=== PATIENT | male | born 1990 ===

== ENCOUNTER 2020-04-13 14:45 | Emergency (ER) | payer BC, OTHER ==
[2020-04-13] MEDS ORDERED: Sodium Chloride 0.9% 2.5 ML Syringe FLUSH PRN (14:55)
[2020-04-13] MEDS ORDERED: Sodium Chloride 0.9% 10 ML Syringe FLUSH PRN (14:55)
[2020-04-13] MEDS ORDERED: Dexamethasone 10 MG/ML SDV IVPUSH ONE (14:56)
[2020-04-13] MEDS ORDERED: Ketorolac 30 MG/ML SDV IVPUSH ONE (15:26)
--- NOTE | 2020-04-13 15:26 | EDM.PDOC ---
ED HPI GENERAL MEDICAL PROBLEM - General Chief Complaint: ENT Problem Stated Complaint: sore throat and chills Time Seen by Provider: 04/13/20 14:47 Source of Information: Reports: Patient History Limitations: Reports: No Limitations - History of Present Illness INITIAL COMMENTS - FREE TEXT/NARRATIVE: HISTORY AND PHYSICAL: History of present illness: Patient is a 29-year-old male who presents to the ED today with concern of sore throat and chills that started this morning when he woke up. Patient states that he does have more pain on the left side of his throat and is having pain with swallowing. Patient states he also has chills but does not feel as if he has a fever but has not checked for one. Patient has a h/o tonsillectomy but denies any other health history. Patient states he did have COVID back in July/August. Has not taken anything for his symptoms. Patient denies fever, chest pain, shortness of breath, or cough. Denies headache, neck stiff ness, change in vision, syncope, or near syncope. Denies nausea, vomiting, abdominal pain, diarrhea, constipation, or dysuria. Has not noted any blood in urine or stool. Patient has been eating and drinking appropri ately. Review of systems: As per history of present illness and below otherwise all systems reviewed and negative. Past medical history: As per history of present illness and as reviewed below otherwise noncontributory. Surgical history: As per history of present illness and as reviewed below otherwise noncontributory. Social history: See social history for further information Family history: As per history of present illness and as reviewed below otherwise noncontributory. Physical exam: General: Patient is alert, oriented, and in no acute distress. Patient sitting comfortably on exam table. Vitals stable and reviewed by me. Nursing documentation reviewed. HEENT: There is a slight fullness of the left sided tonsillar area with absent tonsils. Oropharynx is erythematous without exudate. Otherwise, atraumatic, normocephalic, pupils equal and reactive bilaterally, negative for conjunctival pallor or scleral icterus, mucous membranes moist, TMs normal bilaterally, throat clear, neck supple, nontender, trachea midline. No drooling or trismus noted. No meningeal signs. No hot potato voice noted. Lungs: Clear to auscultation, breath sounds equal bilaterally, chest nontender. Heart: S1S2, regular rate and rhythm without overt murmur Abdomen: Soft, nondistended, nontender. Negative for masses or hepatosplenomegaly. Negative for costovertebral tenderness. Pelvis: Stable nontender. Genitourinary: Deferred. Rectal: Deferred. Skin: Intact, warm, dry. No lesions or rashes noted. Extremities: Atraumatic, negative for cords or calf pain. Neurovascular unremarkable. Neuro: Awake, alert, oriented. Cranial nerves II through XII unremarkable. Cerebellum unremarkable. Motor and sensory unremarkable throughout. Exam nonfocal. Notes: Dr. Johnston verbally involved in patient care. Clinically patient appears well but does have pain with swallowing. He is able to handle secretions, no posturing, drooling, or trismus. He does have a slight fullness of the left tonsillar region so will obtain soft tissue neck CT to further assess. On reassessment, patient remains vitally stable and more comfortable following therapeutics, and appears well, non toxic. Signs and symptoms that would prompt return to the ED thoroughly discussed with patient. Patient placed on expedited follow up list to be seen by PCP. Strict return precautions discussed with patient. Voices understanding and is agreeable to plan of care. Denies any further questions or concerns at this time. Diagnostics: CBC, CMP, Strep, COVID19, soft tissue neck ct w cont Therapeutics: Saline lock, Decadron, Toradol, Clindamycin, Viscous lidocaine, Morphine Prescription: Augmentin Impression: Peritonsillar cellulitis, left Plan: 1. Take medication as prescribed. You can alternate ibuprofen and Tylenol as directed for pain and discomfort. 2. Follow up with a primary care provider in the next 1-2 days as discussed. You have been placed on the expedited follow up list. 3. Return to the ED as needed and as discussed. Definitive disposition and diagnosis as appropriate pending reevaluation and review of above. Throat Pain Score (Numeric/FACES): 5 - Related Data Allergies Allergy/AdvReac Type Severity Reaction Status Date / Time No Known Allergies Allergy Verified 04/13/20 15:00 Home Meds: Home Meds Amoxicillin/Potassium Clav [Augmentin 875-125 Tablet] 1 each PO BID 10 Days #20 tablet 04/13/20 [Rx] Past Medical History Respiratory History: Reports: Asthma Other Musculoskeletal History: broken ankle and RLE - Infectious Disease History Infectious Disease History: Reports: Chicken Pox - Past Surgical History HEENT Surgical History: Reports: Adenoidectomy, Tonsillectomy GI Surgical History: Reports: Cholecystectomy Social & Family History - Family History Family Medical History: No Pertinent Family History - Caffeine Use Caffeine Use: Reports: Coffee - Recreational Drug Use Recreational Drug Use: No ED ROS GENERAL - Review of Systems Review Of Systems: Comprehensive ROS is negative, except as noted in HPI. ED EXAM, GENERAL - Physical Exam Exam: See Below (see dictation) Course - Vital Signs Last Recorded V/S: Last Vital Signs Temp 97.6 F 04/13/20 16:50 Pulse 92 04/13/20 16:50 Resp 18 04/13/20 16:50 BP 121/65 04/13/20 16:50 Pulse Ox 96 04/13/20 16:50 - Orders/Labs/Meds Orders: Active Orders 24 hr Category Date Time Status CORONAVIRUS COVID-19 PCR PHL Stat Lab 04/13/20 15:32 Received CULTURE STREP A CONFIRMATION [RM] Stat Lab 04/13/20 15:32 Results STREP SCRN A RAPID W CULT CONF [RM] Stat Lab 04/13/20 15:32 Results Saline Lock Insert [OM.PC] Stat Oth 04/13/20 14:55 Ordered Labs: Laboratory Tests 04/13/20 04/13/20 04/13/20 Range/Units 15:22 15:22 15:22 WBC 12.93 H (4.0-11.0) K/uL RBC 5.22 (4.50-5.90) M/uL Hgb 15.9 (13.0-17.0) g/dL Hct 46.1 (38.0-50.0) % MCV 88.3 (80.0-98.0) fL MCH 30.5 (27.0-32.0) pg MCHC 34.5 (31.0-37.0) g/dL RDW Std Deviation 38.2 (28.0-62.0) fl RDW Coeff of Kg 12 (11.0-15.0) % Plt Count 196 (150-400) K/uL MPV 9.60 (7.40-12.00) fL Neut % (Auto) 85.7 H (48.0-80.0) % Lymph % (Auto) 5.1 L (16.0-40.0) % Kershaw % (Auto) 8.9 (0.0-15.0) % Eos % (Auto) 0.2 (0.0-7.0) % Baso % (Auto) 0.1 (0.0-1.5) % Neut # (Auto) 11.1 H (1.4-5.7) K/uL Lymph # (Auto) 0.7 (0.6-2.4) K/uL Kershaw # (Auto) 1.2 H (0.0-0.8) K/uL Eos # (Auto) 0.0 (0.0-0.7) K/uL Baso # (Auto) 0.0 (0.0-0.1) K/uL Nucleated RBC % 0.0 /100WBC Nucleated RBCs # 0 K/uL Lactate (0.20-2.00) mmol/L Sodium 137 (136-148) mmol/L Potassium 3.9 (3.5-5.1) mmol/L Chloride 102 (98-107) mmol/L Carbon Dioxide 28.8 (21.0-32.0) mmol/L BUN 14 (7.0-18.0) mg/dL Creatinine 1.0 (0.8-1.3) mg/dL Est Cr Clr Drug Dosing 107.03 mL/min Estimated GFR (MDRD) > 60.0 ml/min Glucose 105 (74-106) mg/dL Calcium 9.1 (8.5-10.1) mg/dL Total Bilirubin 0.6 (0.2-1.0) mg/dL AST 18 (15-37) IU/L ALT 22 (14-63) IU/L Alkaline Phosphatase 80 (46-116) U/L Total Protein 8.1 (6.4-8.2) g/dL Albumin 4.1 (3.4-5.0) g/dL Globulin 4.0 (2.6-4.0) g/dL Albumin/Globulin Ratio 1.0 (0.9-1.6) Monoscreen NEGATIVE (NEG) SARS CoV-2 RNA Rapid IRWIN (NEGATIVE) 04/13/20 04/13/20 Range/Units 15:32 16:34 WBC (4.0-11.0) K/uL RBC (4.50-5.90) M/uL Hgb (13.0-17.0) g/dL Hct (38.0-50.0) % MCV (80.0-98.0) fL MCH (27.0-32.0) pg MCHC (31.0-37.0) g/dL RDW Std Deviation (28.0-62.0) fl RDW Coeff of Kg (11.0-15.0) % Plt Count (150-400) K/uL MPV (7.40-12.00) fL Neut % (Auto) (48.0-80.0) % Lymph % (Auto) (16.0-40.0) % Kershaw % (Auto) (0.0-15.0) % Eos % (Auto) (0.0-7.0) % Baso % (Auto) (0.0-1.5) % Neut # (Auto) (1.4-5.7) K/uL Lymph # (Auto) (0.6-2.4) K/uL Kershaw # (Auto) (0.0-0.8) K/uL Eos # (Auto) (0.0-0.7) K/uL Baso # (Auto) (0.0-0.1) K/uL Nucleated RBC % /100WBC Nucleated RBCs # K/uL Lactate 0.9 (0.20-2.00) mmol/L Sodium (136-148) mmol/L Potassium (3.5-5.1) mmol/L Chloride (98-107) mmol/L Carbon Dioxide (21.0-32.0) mmol/L BUN (7.0-18.0) mg/dL Creatinine (0.8-1.3) mg/dL Est Cr Clr Drug Dosing mL/min Estimated GFR (MDRD) ml/min Glucose (74-106) mg/dL Calcium (8.5-10.1) mg/dL Total Bilirubin (0.2-1.0) mg/dL AST (15-37) IU/L ALT (14-63) IU/L Alkaline Phosphatase (46-116) U/L Total Protein (6.4-8.2) g/dL Albumin (3.4-5.0) g/dL Globulin (2.6-4.0) g/dL Albumin/Globulin Ratio (0.9-1.6) Monoscreen (NEG) SARS CoV-2 RNA Rapid IRWIN NEGATIVE (NEGATIVE) Meds: Medications Discontinued Medications Generic Name Dose Route Start Last Admin Trade Name Freq PRN Reason Stop Dose Admin Dexamethasone 10 mg 04/13/20 14:56 04/13/20 15:24 Decadron IVPUSH 04/13/20 14:57 10 mg ONETIME ONE Administration Clindamycin Phosphate Confirm 04/13/20 17:21 04/13/20 17:35 Cleocin In D5w Administered 04/13/20 17:22 Not Given Dose 50 mls @ as directed IV .STK-MED ONE Clindamycin Phosphate 300 mg/ 50 mls @ 150 mls/hr 04/13/20 17:31 04/13/20 17:33 Premix IV 04/13/20 17:50 150 mls/hr ONETIME ONE Administration Iopamidol 100 ml 04/13/20 16:31 04/13/20 16:32 Isovue Multipack-370 (76%) IVPUSH 04/13/20 16:32 100 ml ONETIME ONE Administration Ketorolac Tromethamine 30 mg 04/13/20 15:26 04/13/20 16:50 Toradol IVPUSH 04/13/20 15:27 30 mg ONETIME ONE Administration Lidocaine HCl 15 ml 04/13/20 17:19 04/13/20 17:30 Xylocaine 2% Viscous PO 04/13/20 17:20 15 ml ONETIME ONE Administration Morphine Sulfate 2 mg 04/13/20 17:19 04/13/20 17:30 Morphine IVPUSH 04/13/20 17:20 2 mg ONETIME ONE Administration Sodium Chloride 10 ml 04/13/20 14:55 04/13/20 15:24 Saline Flush FLUSH 10 ml ASDIRECTED PRN Administration Keep Vein Open Sodium Chloride 2.5 ml 04/13/20 14:55 04/13/20 15:24 Saline Flush FLUSH 2.5 ml ASDIRECTED PRN Administration Keep Vein Open Departure - Departure Time of Disposition: 17:12 Disposition: Home, Self-Care 01 Clinical Impression: Peritonsillar cellulitis - Discharge Information Prescriptions: Amoxicillin/Potassium Clav [Augmentin 309-125 Tablet] 1 each PO BID 10 Days #20 tablet Instructions: Peritonsillar Cellulitis Referrals: PCP,None [Primary Care Provider] - Forms: ED Department Discharge Additional Instructions: The following information is given to patients seen in the emergency department who are being discharged to home. This information is to outline your options for follow-up care. We provide all patients seen in our emergency department with a follow-up referral. The need for follow-up, as well as the timing and circumstances, are variable depending upon the specifics of your emergency department visit. If you don't have a primary care physician on staff, we will provide you with a referral. We always advise you to contact your personal physician following an emergency department visit to inform them of the circumstance of the visit and for follow-up with them and/or the need for any referrals to a consulting specialist. The emergency department will also refer you to a specialist when appropriate. This referral assures that you have the opportunity for follow-up care with a specialist. All of these measure are taken in an effort to provide you with optimal care, which includes your follow-up. Under all circumstances we always encourage you to contact your private physician who remains a resource for coordinating your care. When calling for follow-up care, please make the office aware that this follow-up is from your recent emergency room visit. If for any reason you are refused follow-up, please contact the [facility] Emergency Department at and asked to speak to the emergency department charge nurse. [facility] [address] [place] [id number] [facility] [address] [place] [id number] 1. Take medication as prescribed. You can alternate ibuprofen and Tylenol as directed for pain and discomfort. 2. Follow up with a primary care provider in the next few days as discussed. You have been placed on the expedited follow up list. 3. Return to the ED as needed and as discussed. Sepsis Event Note (ED) - Evaluation Sepsis Screening Result: No Definite Risk - Focused Exam Vital Signs: Vital Signs Temp Pulse Resp BP Pulse Ox 11/22/20 16:50 97.6 F 92 18 121/65 96 04/13/20 15:45 18 117/65 04/13/20 15:16 97.6 F 04/13/20 15:00 97.1 F 95 18 151/88 H 96 - My Orders Last 24 Hours: My Active Orders 04/13/20 14:55 Saline Lock Insert [OM.PC] Stat 04/13/20 15:32 CORONAVIRUS COVID-19 PCR PHL Stat CULTURE STREP A CONFIRMATION [RM] Stat STREP SCRN A RAPID W CULT CONF [RM] Stat - Assessment/Plan Last 24 Hours: My Active Orders 04/13/20 14:55 Saline Lock Insert [OM.PC] Stat 04/13/20 15:32 CORONAVIRUS COVID-19 PCR PHL Stat CULTURE STREP A CONFIRMATION [RM] Stat STREP SCRN A RAPID W CULT CONF [RM] Stat
[2020-04-13 15:52] LABS: BLOOD UREA NITROGEN,BUN 14 mg/dL (7.0-18.0); CARBON DIOXIDE,CO2 28.8 mmol/L (21.0-32.0); CHLORIDE,CL 102 mmol/L (98-107); GLUCOSE RANDOM 105 mg/dL (74-106); POTASSIUM,K 3.9 mmol/L (3.5-5.1); SODIUM,NA 137 mmol/L (136-148)
[2020-04-13] MEDS ORDERED: Iopamidol 755 MG/ML 500 ML Multipack Bottle IVPUSH ONE (16:31)
--- NOTE | 2020-04-13 17:05 | CT ---
INDICATION: Pain. Difficulty swallowing. Fullness on the left side. TECHNIQUE: CT images were acquired through the neck following intravenous contrast. COMPARISON: None. Findings Enlarged left palatine tonsil demonstrating heterogeneous areas of hypoenhancement extending into the left peritonsillar region, compatible with edema/phlegmon. No organized peritonsillar abscess. Inflammation extends into the left parapharyngeal space. Mild narrowing of the oropharyngeal airway. The nasopharynx, hypopharynx, and larynx are without enhancing lesions. The true vocal cords are adducted, limiting evaluation of the glottis. Mild secretions pooling dependently within the oropharynx. [id number] enlargement of the lingual tonsils, likely reactive. The parotid and submandibular glands are symmetric in size and without enhancing lesions or calcifications. The thyroid gland is normal in size and demonstrates homogeneous enhancement within limitations of artifact. No pathologically enlarged lymph nodes. Limited images through the brain are without intracranial mass effect. Mild mucosal thickening and small air-fluid level in the right maxillary sinus. Mild opacification of the ethmoid air cells. The mastoid air cells are clear. Reversal of the cervical lordosis. The visualized lungs are clear. IMPRESSION: 1. Enlarged left palatine tonsil, compatible with tonsillitis. Left peritonsillar hypoattenuation is most compatible with phlegmon. No organized peritonsillar abscess. Mild narrowing of the oropharyngeal airway. 2. [id number] enlargement of the lingual tonsils, likely reactive. 3. Mild mucosal thickening and small air-fluid level in the right maxillary sinus. Correlate with symptoms of acute sinusitis been Please note that all CT scans at this facility use dose modulation, iterative reconstruction, and/or weight-based dosing when appropriate to reduce radiation dose to as low as reasonably achievable. Dictated by Joby Montano MD @ Apr 13 2020 6:24PM Signed by Dr. Joby Montano @ Apr 13 2020 7:47PM
[2020-04-13] MEDS ORDERED: Morphine 2 MG/ML SYRINGE IVPUSH ONE (17:19)
[2020-04-13] MEDS ORDERED: Lidocaine 2% Viscous Solution 15 ML Cup PO ONE (17:19)
[2020-04-13] MEDS ORDERED: Clindamycin Phosphate in D5W 50 ML IV ONE (17:21)
[2020-04-13] MEDS ORDERED: Clindamycin Phosphate in D5W 300 MG in Premix Bag 1 BAG IV ONE ×2 (17:31)
== END 2020-04-13 18:04 | disposition home or self-care (01) ==
LOC: MW.ED 14:45
DX: J36 Peritonsillar abscess (principal); J45.909 Unspecified asthma, uncomplicated; Z20.828 Contact with and (suspected) exposure to other viral communicable diseases
CPT/HCPCS: 36415; 70491; 80053; 83605; 85025; 86308; 87081; 87635; 87880; 96365; 96375; 99284; A9270; J1100; J1885; J2270; J3490; Q9967; 99283; U0002